=== PATIENT | male | born 2000 | race African-American/Black ===

== ENCOUNTER 2021-01-29 04:06 | Emergency (ER) | payer BC, SELFPAY ==
[2021-01-29] VITALS (13 sets, daily range): BP systolic 110–138; BP diastolic 82–86; PULSE 66–86; RESP 13–25; TEMP 36.7; O2SAT 95–100
[2021-01-29] MEDS: ALBUTEROL SULFATE NEB 2.5 MG/0.5 ML INH 5 MG INHALATION (04:37)
[2021-01-29] MEDS: IPRATROPIUM BR 0.02% INH SOLN 0.5 MG/2.5 ML VIAL INHALATION (04:37)
--- NOTE | 2021-01-29 04:40 | ED.GENADULT ---
HPI - General Adult General Chief complaint: Asthma Stated complaint: wheezing, coughing Time Seen by Provider: 01/29/21 04:20 History of Present Illness HPI narrative: Patient is a 20-year-old male who presents ER with wheezing and cough over the last 2 days. No aggravating or alleviating factors. Has history of asthma but has not had an exacerbation years. Denies fevers or chills or sweats. No loss of taste or smell. No known sick contacts. No chest pain or chest pressure. Related Data Allergies Allergy/AdvReac Type Severity Reaction Status Date / Time No Known Allergies Allergy Verified 01/29/21 04:16 Review of Systems Review of Systems: All systems reviewed & are unremarkable except as noted in HPI and below Constitutional: Constitutional: Denies chills, Denies fever(s) and Denies weakness ENT: Denies nasal congestion and Denies sore throat Cardiovascular: Cardiovascular: Denies chest pain and Denies radiating jaw, neck or arm pain Respiratory: Respiratory: Denies chest congestion, Reports cough, Reports dyspnea and Reports wheezing Gastrointestinal: Gastrointestinal: Denies abdominal pain, Denies nausea and Denies vomiting PMFSH Past Medical History Medical History (Updated 01/29/21 @ 05:03 by Jaime Bender MD) Asthma Surgical History Surgical History (Updated 01/29/21 @ 04:41 by Jaime Bender MD) No history of previous surgery Social History Social History (Updated 01/29/21 @ 04:41 by Jaime Bender MD) Smoking status: Current every day smoker Exam Narrative: GENERAL: Well-appearing, well-nourished, and in no acute distress. HEAD: Normocephalic, atraumatic. CHEST: Wheezing diffusely with inspiration and expiration. No respiratory distress. HEART: Regular rate and rhythm. Normal peripheral pulses. EXTREMITIES: Normal range of motion. No edema. SKIN: Warm, dry, no rash. NEURO: Alert and oriented x3. PSYCH: Normal mood and affect. Course Course Emergency Course: Wheezing resolved with nebulizer treatment. Discharge home with albuterol and prednisone. Vital Signs Vital signs: Vital Signs Temperature 98.1 F 01/29/21 04:11 Pulse Rate 66 01/29/21 04:11 Respiratory Rate 18 01/29/21 04:11 Blood Pressure 110/82 01/29/21 04:11 Pulse Oximetry 97 01/29/21 04:11 Temperature 98.1 F 01/29/21 04:11 Pulse Rate 68 01/29/21 04:38 Respiratory Rate 14 01/29/21 04:38 Blood Pressure 110/82 01/29/21 04:11 Pulse Oximetry 99 01/29/21 04:57 Medical Decision Making Vital Signs Vital Signs: Vital Signs Temperature 98.1 F 01/29/21 04:11 Pulse Rate 66 01/29/21 04:11 Respiratory Rate 18 01/29/21 04:11 Blood Pressure 110/82 01/29/21 04:11 Pulse Oximetry 97 01/29/21 04:11 Temperature 98.1 F 01/29/21 04:11 Pulse Rate 68 01/29/21 04:38 Respiratory Rate 14 01/29/21 04:38 Blood Pressure 110/82 01/29/21 04:11 Pulse Oximetry 99 01/29/21 04:57 Discharge Plan Discharge Clinical Impression: Asthma with acute exacerbation Patient Disposition: Home, Self-Care Condition: Stable Instructions: Asthma (ED) Additional Instructions: Return the ER if you have worsening shortness of breath despite using your inhaler, you cannot keep down food or water, you lose consciousness, you have additional concerns. Prescriptions: New prednisone 50 mg tablet 50 mg PO DAILY Qty: 6 RF: 0 albuterol sulfate 90 mcg/actuation HFA aerosol inhaler 4 puff INHALATION QID PRN (Reason: shortness of breath or wheezing) Qty: 8 RF: 0 Follow-up/Referrals: NON-NURSING STAFF,ADMISSIONS [Primary Care Provider] - 1 Week
== END 2021-01-29 05:28 | disposition home or self-care (01) ==
PROVIDERS: Emergency Provider Emergency Medicine
DX: J45.901 Unspecified asthma with (acute) exacerbation (principal); F17.200 Nicotine dependence, unspecified, uncomplicated
CPT/HCPCS: 94640; 99283